=== PATIENT | female | born 1970 | race Caucasian/White ===

== ENCOUNTER 2024-06-24 18:36 | Emergency (ER) | payer MEDICAID ==
[~2024-06-24] VITALS: Ht 165.1 cm; Wt 90.7 kg
[2024-06-24 18:38] VITALS: O2SAT 100
[2024-06-24] MEDS ORDERED: IBUPROFEN 800MG TABLET PO ONE (19:30)
[2024-06-24] MEDS ORDERED: IBUP-2030 MT (20:22)
[2024-06-24 20:30] VITALS: TEMP 36.83628; O2SAT 100
[2024-06-24] MEDS ORDERED: IBUPROFEN 800MG TABLET PO NR (20:45)
[2024-06-24 20:59] VITALS: BP 140/85; PULSE 65; RESP 16
[2024-06-24] MEDS: IBUPROFEN 600MG TABLET PO NR (20:59)
== END 2024-06-24 21:01 | disposition home or self-care (01) ==
LOC: ER 18:36
DX: S69.92XA Unspecified injury of left wrist, hand and finger(s), initial encounter (principal); M79.672 Pain in left foot; I10 Essential (primary) hypertension; W18.39XA Other fall on same level, initial encounter; Y93.89 Activity, other specified; Y92.89 Other specified places as the place of occurrence of the external cause; Y99.8 Other external cause status
CPT/HCPCS: 29125; 73110; 73600; 73630; 99284